=== PATIENT | female | born 1955 | race Caucasian/White ===

== ENCOUNTER 2020-05-21 11:01 | Outpatient (CLI) | payer BC ==
[~2020-05-21 11:01] MED LIST: ASPI-515 PO; CALCIUM PO; LEVO88TA43 PO; MAGNES PO; METH5TAB6 PO; OXYC5TAB2 PO; VITAMIN D LIQUID
[2020-05-21] MEDS ORDERED: AMLO-150 PO (11:41)
[2020-05-21] MEDS ORDERED: stool softener PO (11:41)
[2020-05-21] MEDS ORDERED: LEVO125T63 PO (11:41)
[2020-05-21] MEDS ORDERED: milk of magnesia PO (11:41)
[2020-05-21] MEDS ORDERED: LISI-167 PO (11:41)
[2020-05-21] MEDS ORDERED: FAMO40TA61 PO (11:41)
[2020-05-21 12:38] LABS: BASOPHILS # (AUTO) 0.02 x10^3/uL (0-0.1); BASOPHILS % (AUTO) 1 % (0-1); EOSINOPHILS # (AUTO) 0.07 x10^3/uL (0-0.4); EOSINOPHILS % (AUTO) 2 % (1-7); LYMPHOCYTES # (AUTO) 0.63 x10^3/uL (1-3.4); LYMPHOCYTES % (AUTO) 15 % (22-44); MD NO; MEAN CORPUSCULAR HEMOGLOBIN 26.4 pg (27.0-34.8); MEAN CORPUSCULAR HGB CONC 31.6 g/dL (32.4-35.8); MEAN CORPUSCULAR VOLUME 83.7 fL (80-100); MEAN PLATELET VOLUME 7.2 fL (7.4-10.4); MONOCYTES # (AUTO) 0.37 x10^3/uL (0.2-0.8); MONOCYTES % (AUTO) 9 % (2-9); NEUTROPHILS # (AUTO) 3.11 x10^3/uL (1.8-6.8); NEUTROPHILS % (AUTO) 74 % (42-75); PLATELET COUNT 273 x10^3/uL (130-400); RED BLOOD COUNT 3.97 x10^6/uL (3.82-5.3); RED CELL DISTRIBUTION WIDTH 19.6 % (9.6-15.2)
[2020-05-21 12:46] LABS: INTERNATIONAL NORMALIZED RATIO 1.02 (0.93-1.1); PROTHROMBIN TIME 10.5 Seconds (9.6-11.5)
[2020-05-21 12:47] LABS: ALANINE AMINOTRANSFERASE 16 U/L (12-78); ALBUMIN 2.9 g/dL (3.4-5.0); ANION GAP 5 mmol/L (5-15); CHLORIDE 103 mmol/L (98-107)
[2020-05-21 12:50] LABS: ALKALINE PHOSPHATASE 48 U/L (45-117); BILIRUBIN,TOTAL 0.3 mg/dL (0.2-1.0); CREATININE 0.78 mg/dL (0.55-1.02); TOTAL PROTEIN 6.3 g/dL (6.4-8.2)
== END 2020-05-21 23:59 | disposition home or self-care (01) ==
LOC: STAR 11:01
PROVIDERS: ATTEND Specialist
DX: Z01.818 Encounter for other preprocedural examination (principal); Z11.59 Encounter for screening for other viral diseases; J90 Pleural effusion, not elsewhere classified; C77.2 Secondary and unspecified malignant neoplasm of intra-abdominal lymph nodes; C56.9 Malignant neoplasm of unspecified ovary
CPT/HCPCS: 36415; 71046; 80053; 85025; 85610; 85730; 87635; 93005

== ENCOUNTER 2020-05-24 07:30 | Inpatient (IN) | payer BC ==
[~2020-05-24] VITALS: Ht 162.6 cm; Wt 51.7 kg
[~2020-05-24 07:30] MED LIST changes: +AMLO-150 PO; +FAMO40TA61 PO; +LEVO125T63 PO; +LISI-167 PO; +milk of magnesia PO; +stool softener PO
[2020-05-24 14:00] VITALS: BP 133/86
[2020-05-24 14:01] VITALS: BP 127/85
[2020-05-24] MEDS ORDERED: MORPHINE SULFATE 4 MG/ML, 1ML IVPush PRN (17:30)
[2020-05-24] MEDS: D5%-0.45NACL+KCL 20MEQ 1,000 ML IV SCH (17:42)
[2020-05-24 17:58] LABS: BASOPHILS % (AUTO) 0 % (0-1); EOSINOPHILS % (AUTO) 0 % (1-7); LYMPHOCYTES # (AUTO) 0.63 x10^3/uL (1-3.4); LYMPHOCYTES % (AUTO) 8 % (22-44); MD NO; MEAN CORPUSCULAR HEMOGLOBIN 26.4 pg (27.0-34.8); MEAN CORPUSCULAR HGB CONC 31.6 g/dL (32.4-35.8); MEAN CORPUSCULAR VOLUME 83.7 fL (80-100); MEAN PLATELET VOLUME 7.3 fL (7.4-10.4); MONOCYTES # (AUTO) 0.54 x10^3/uL (0.2-0.8); MONOCYTES % (AUTO) 7 % (2-9); NEUTROPHILS # (AUTO) 6.39 x10^3/uL (1.8-6.8); NEUTROPHILS % (AUTO) 85 % (42-75); PLATELET COUNT 284 x10^3/uL (130-400); RED BLOOD COUNT 4.26 x10^6/uL (3.82-5.3); RED CELL DISTRIBUTION WIDTH 20.2 % (9.6-15.2)
[2020-05-24] MEDS ORDERED: LISI-170 PO (18:01)
[2020-05-24] MEDS ORDERED: LORA-445 PO (18:01)
[2020-05-24 18:02] LABS: ANION GAP 11 mmol/L (5-15); CALCIUM 7.9 mg/dL (8.5-10.1); CHLORIDE 100 mmol/L (98-107); CREATININE 0.74 mg/dL (0.55-1.02)
[2020-05-24 19:03] VITALS: BP 122/85
[2020-05-24] MEDS ORDERED: GOLYTELY 4,000ML ORAL.SOL PO ONE (19:30)
[2020-05-24] MEDS: FAMOTIDINE 20 MG/2 ML IVPush SCH (21:35)
[2020-05-25] MEDS: D5%-0.45NACL+KCL 20MEQ 1,000 ML IV SCH ×4 (01:29→20:20)
[2020-05-25 02:22] VITALS: BP 132/88
[2020-05-25] MEDS: ONDANSETRON 2MG/ML, 2ML IVPush PRN (05:44)
[2020-05-25 07:20] VITALS: BP 114/77
[2020-05-25] MEDS ORDERED: EPINEPHRINE 1 MG/ML, 1ML ONE (08:29)
[2020-05-25] MEDS ORDERED: BUPIVACAINE/PF 0.25% ONE (08:29)
[2020-05-25] MEDS: FAMOTIDINE 20 MG/2 ML IVPush SCH ×2 (09:55→19:37)
[2020-05-25] MEDS ORDERED: CHLORHEXIDINE 15 ML UDC ONE ×2 (11:02→13:55)
[2020-05-25] MEDS ORDERED: FENTANYL PF 250 MCG/5ML ONE (12:06)
[2020-05-25] MEDS ORDERED: MIDAZOLAM 1 MG/ML, 2ML ONE (12:06)
[2020-05-25] MEDS ORDERED: CHLORHEXIDINE 15 ML UDC MM ONE (14:00)
[2020-05-25] MEDS ORDERED: CEFAZOLIN 1,000 MG ONE (14:10)
[2020-05-25] MEDS ORDERED: ONDANSETRON 2MG/ML, 2ML ONE (14:10)
[2020-05-25] MEDS ORDERED: ROCURONIUM 10 MG/ML,10ML ONE (14:10)
[2020-05-25] MEDS ORDERED: DEXAMETHASONE 4 MG/ML, 1ML ONE (14:10)
[2020-05-25] MEDS ORDERED: PROPOFOL 10 MG/ML, 20ML ONE (14:10)
[2020-05-25] MEDS ORDERED: SUCCINYLCHOLINE 20 MG/ML, 10ML ONE (14:10)
[2020-05-25] MEDS ORDERED: ONDANSETRON 2MG/ML, 2ML IVPush PRN (15:00)
[2020-05-25] MEDS ORDERED: OXYcodone 5 MG/5 ML ORAL.SOL UDC PO PRN (15:00)
[2020-05-25] MEDS ORDERED: LABETALOL 5MG/ML, 20ML IV PRN (15:00)
[2020-05-25] MEDS ORDERED: KETOROLAC 30 MG/1 ML IV PRN ×2 (15:00→21:00)
[2020-05-25] MEDS ORDERED: FENTANYL PF 100 MCG/2ML IV PRN (15:00)
[2020-05-25] MEDS ORDERED: ALBUTEROL SULFATE 2.5 MG/3 ML NPPB PRN (15:00)
[2020-05-25] MEDS ORDERED: METOCLOPRAMIDE 5 MG/ML, 2ML IV PRN (15:00)
[2020-05-25] MEDS ORDERED: DIAZEPAM 5 MG/ML, 2ML IV PRN ×2 (15:00)
[2020-05-25] MEDS ORDERED: PROMETHAZINE 25 MG/ML, 1ML IV PRN (15:00)
[2020-05-25] MEDS ORDERED: hydrALAzine 20 MG/ML, 1ML IV PRN (15:00)
[2020-05-25] MEDS ORDERED: MEPERIDINE/PF 25MG/0.5ML IVPush PRN (15:00)
[2020-05-25] MEDS ORDERED: HYDROmorphone 1 MG/ML, 1ML INJ IV PRN (15:00)
[2020-05-25] MEDS ORDERED: FENTANYL PF 100 MCG/2ML ONE (16:50)
[2020-05-25] MEDS ORDERED: FUROSEMIDE 40 MG/4 ML ONE (18:35)
[2020-05-25] MEDS ORDERED: FUROSEMIDE 40 MG/4 ML IV ONE (19:00)
[2020-05-25] MEDS: MORPHINE SULFATE 4 MG/ML, 1ML IVPush PRN ×2 (21:00→21:51)
[2020-05-25] MEDS ORDERED: LORazepam 2 MG/ML, 1ML IV PRN (21:30)
[2020-05-26] MEDS: MORPHINE SULFATE 4 MG/ML, 1ML IVPush PRN ×4 (03:00→21:21)
[2020-05-26] MEDS: FAMOTIDINE 20 MG/2 ML IVPush SCH ×3 (09:42→21:21)
[2020-05-26] MEDS: ONDANSETRON 2MG/ML, 2ML IVPush PRN (12:36)
[2020-05-27] MEDS: FAMOTIDINE 20 MG/2 ML IVPush SCH ×2 (09:00→21:00)
[2020-05-27] MEDS: MORPHINE SULFATE 4 MG/ML, 1ML IVPush PRN ×3 (10:47→21:57)
[2020-05-27] MEDS: ONDANSETRON 2MG/ML, 2ML IVPush PRN (18:08)
[2020-05-28] MEDS: MORPHINE SULFATE 4 MG/ML, 1ML IVPush PRN ×4 (02:17→18:15)
[2020-05-28] MEDS: FAMOTIDINE 20 MG/2 ML IVPush SCH (10:04)
[2020-05-28] MEDS: ONDANSETRON 2MG/ML, 2ML IVPush PRN (11:20)
[2020-05-28] MEDS: MORPHINE 30MG/30ML PCA.SYR IV SCH (21:31)
[2020-05-29] MEDS: MORPHINE 30MG/30ML PCA.SYR IV SCH (11:45)
== END 2020-05-29 17:42 | disposition expired | DRG 374 ==
LOC: 3N 13:31 → 4NW 22:07 → CCU 05-25 18:22 → 4NW 05-25 21:38
PROVIDERS: ADMIT Specialist; ATTEND Specialist
PROC: 0W9G3ZZ Drainage of Peritoneal Cavity, Percutaneous Approach (ICD-10-PCS; 2020-05-25)
PROC: 8E0W4CZ Robotic Assisted Procedure of Trunk Region, Percutaneous Endoscopic Approach (ICD-10-PCS; 2020-05-25)
PROC: 02HV33Z Insertion of Infusion Device into Superior Vena Cava, Percutaneous Approach (ICD-10-PCS; 2020-05-25)
PROC: 5A09357 Assistance with Respiratory Ventilation, Less than 24 Consecutive Hours, Continuous Positive Airway Pressure (ICD-10-PCS; 2020-05-25)
PROC: 0DH64UZ Insertion of Feeding Device into Stomach, Percutaneous Endoscopic Approach (ICD-10-PCS; principal; 2020-05-25 11:30)
DX: C78.6 Secondary malignant neoplasm of retroperitoneum and peritoneum (principal); J96.01 Acute respiratory failure with hypoxia; C79.2 Secondary malignant neoplasm of skin; C56.9 Malignant neoplasm of unspecified ovary; J90 Pleural effusion, not elsewhere classified; K56.609 Unspecified intestinal obstruction, unspecified as to partial versus complete obstruction; K56.7 Ileus, unspecified; R18.8 Other ascites; Z68.1 Body mass index [BMI] 19.9 or less, adult; J98.11 Atelectasis; K90.49 Malabsorption due to intolerance, not elsewhere classified; D07.39 Carcinoma in situ of other female genital organs; Z43.2 Encounter for attention to ileostomy; Z51.5 Encounter for palliative care; Z66 Do not resuscitate; Z85.3 Personal history of malignant neoplasm of breast; Z85.43 Personal history of malignant neoplasm of ovary; Z92.21 Personal history of antineoplastic chemotherapy; Z88.0 Allergy status to penicillin
CPT/HCPCS: 36415; 36600; 74018; J3490; 71045; 80048; 82803; 85025; 93005; 94660; B4087; C1729; G0378; J0171; J0690; J1100; J1940; J2250; J2270; J2405; J2704; J3010; J0330; J2060; J3480